=== PATIENT | female | born 1950 | race African-American/Black ===

== ENCOUNTER 2019-12-11 22:23 | Inpatient (IN) | payer MEDICARE, BC ==
[~2019-12-11] VITALS: Ht 165.1 cm; Wt 82.6 kg
--- NOTE | 2019-12-11 22:30 | NUR ---
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 PT STATES SHE WAS CLEANING AND SLIPPED ON WET FLOOR. DENIED LOC, DIZZINESS. SKIN INTACT. PT REC'D 100MCG [facility] EN ROUTE TO HOSPITAL. PT C/O PAIN WITH MOVEMENT. PT AAOX4. RESPIRATIONS EVEN AND UNLABORED. VITAL SIGNS STABLE. NO ACUTE DISTRESS NOTED AT THIS TIME. PLACED ON MONITOR. CALL LIGHT WITHIN REACH. WILL CONTINUE TO MONITOR
[2019-12-11] MEDS ORDERED: ONDANSETRON 4 MG TAB.RAPDIS ONE (22:42)
[2019-12-11] MEDS ORDERED: HYDROMORPHONE 1 MG/1 ML DISP.SYRIN ONE (22:42)
[2019-12-11] MEDS ORDERED: ONDANSETRON HCL/PF 4 MG/2 ML VIAL ONE (22:47)
--- NOTE | 2019-12-11 22:48 | NUR ---
PER VERBAL MD ORDER, WILL ADMINISTER ZOFRAN IV INSTEAD OF ODT
--- NOTE | 2019-12-11 22:51 | NUR ---
PER VERBAL MD ORDER, WILL HOLD DILAUDID AND ZOFRAN AT THIS TIME.
--- NOTE | 2019-12-11 22:57 | NUR ---
TONA ([facility]) [phone]
[2019-12-11] MEDS ORDERED: ONDANSETRON 4 MG TAB.RAPDIS SL ONE (23:00)
[2019-12-11] MEDS ORDERED: ONDANSETRON HCL/PF - ER 4 MG/2 ML VIAL IV ONE (23:00)
[2019-12-11] MEDS ORDERED: HYDROMORPHONE 1 MG/1 ML DISP.SYRIN IM ONE (23:00)
--- NOTE | 2019-12-12 00:15 | NUR ---
SWITCHBOARD RECEPTIONIST AT BEDSIDE FOR BLOOD DRAW
[2019-12-12 00:21] LABS: BASOPHILS % (AUTO) 0.2 % (0.0-2.0); EOSINOPHILS % (AUTO) 0.1 % (0.0-6.0); HEMATOCRIT 38 % (33-45); HEMOGLOBIN 12.5 g/dL (11.5-14.8); LYMPHOCYTES # (AUTO) 0.9 /CMM (0.8-4.8); MEAN CORPUSCULAR HGB CONC 33 g/dl (31.0-36.0); MEAN CORPUSCULAR VOLUME 83 fL (82-100); MONOCYTES # (AUTO) 0.8 /CMM (0.1-1.30); MONOCYTES % (AUTO) 7.2 % (2.0-12.0); NEUTROPHILS # (AUTO) 9.7 /CMM (1.8-8.9); NEUTROPHILS % (AUTO) 84.5 % (43.0-81.0); PLATELET COUNT (AUTO) 221 /CMM (150-450); RED BLOOD CELL COUNT(AUTO) 4.59 MIL/uL (4.0-5.2); WHITE BLOOD COUNT (AUTO) 11.5 K/uL (4.3-11.0)
[2019-12-12 00:30] LABS: CALCIUM, SERUM 8.9 mg/dL (8.5-10.1); CREATININE 0.9 mg/dL (0.6-1.3); POTASSIUM 4.1 mmol/L (3.5-5.1)
--- NOTE | 2019-12-12 00:33 | NUR ---
REPORT GIVEN TO SUZIE SMITH FOR JORDY
[2019-12-12 00:37] LABS: ALBUMIN 3.5 g/dL (3.4-5.0); BILIRUBIN,TOTAL 0.3 mg/dL (0.2-1.0); TOTAL PROTEIN, SERUM 6.6 g/dL (6.4-8.2)
[2019-12-12] MEDS ORDERED: Z GUARD REMEDY 2 OZ OINT TP PRN (01:00)
[2019-12-12] MEDS ORDERED: ACETAMINOPHEN 325 MG TABLET PO PRN (01:00)
[2019-12-12] MEDS ORDERED: ONDANSETRON HCL/PF 4 MG/2 ML VIAL IVP PRN (01:00)
[2019-12-12] MEDS ORDERED: MORPHINE SULFATE INJ 2 MG/ML DISP.SYRIN IV PRN (01:00)
[2019-12-12] MEDS: HYDROMORPHONE 1 MG/1 ML DISP.SYRIN IV PRN ×5 (01:39→22:07)
[2019-12-12 02:00] VITALS: BP 146/65
--- NOTE | 2019-12-12 02:09 | NUR ---
[facility]
[2019-12-12 03:00] VITALS: BP 146/65
--- NOTE | 2019-12-12 03:08 | NUR ---
RN NOTES: NOTIFIED MD THAT PT UNABLE TO URINATE USING BED ALLEN, PT CLAIMED LAST VOIDED AT DINNER TIME YESTERDAY AROUND 0500PM. UNABLE TO TOLERATE SLIGHT MOVEMENT DUE TO LEFT HIP FRACTURE. PER MD, TELEPHONE ORDER, OKAY TO INSERT SHIN CATHETER.
[2019-12-12] MEDS: IV NS 0.9% 1,000 ML IV PRN ×2 (03:27→17:18)
--- NOTE | 2019-12-12 04:00 | NUR ---
ADMISSION NOTES: 0215: RECEIVED REPORT FROM YARITZA BROWN RN. PT BROUGHT TO THE UNIT VIA [facility], S/P [facility] F[facility]. ORIENTED PT TO UNIT POLICY AND HOURLY ROUNDING, USE OF CALL LIGHT SYSTEM. PT STATED SHE'S HAVING LEFT HIP AND LEFT LEG CRAMPS. LAST DILAUDID ADMINISTERED 0139AM. IV ACCESS PATENT AND FLUSHING WELL, ON HL. PT REFUSED TO BE MOVE AND TURN , EDUCATION PROVIDED TO PT. ALSO REFUSED FOR SKIN CHECK. UNABLE TO REMOVE LINENS UNDERNEATH PT REFUSING FOR TURNING. PT SOMEWHAT FRUSTRATED, ALSO MADE AWARE OF VISITATION RESTRICTION DUE TO COVID. PT USES OWN N95 FROM HOME. 0230: VS TAKEN AND RECORDED. INVENTORY OF BELONGINGS COMPLETED BY TRISTON AYALA. 0240: PLACED ROLLED BLANKET TO OFFLOAD BOTH HEELS. PT REFUSED SCD DUE TO LEG CRAMPS AND PAIN. EDUCATION PROVIDED TO PT. ADMISSION ORDERS ACKNOWLEDGED. DISCUSSED PLAN OF CARE TO PT. SAFETY PRECAUTIONS FOR FALL INITIATED, CALL LIGHT IN REACH, WILL CONTINUE MONITORING PT.
--- NOTE | 2019-12-12 04:06 | NUR ---
RN NOTES: SUCCESSFULLY INSERTED SHIN CATHETER, YELLOW COLORED URINE OBTAINED ABOUT 400ML, BAG DRAINING VIA GRAVITY.
--- NOTE | 2019-12-12 04:10 | NUR ---
RN NOTES: PT REFUSED TO BE TURN AND REPOSITION STATED SHE'S HAVING TOO MUCH CRAMPS ON HER LEG AND HIPS, EDUCATION PROVIDED TO PT REGARDING POSSIBLE DEVELOPMENT OF PRESSURE INJURIES ON SACRAL AND BONY PROMINENCE.
--- NOTE | 2019-12-12 04:16 | NUR ---
RN NOTES: PT STATED SHE'S TAKING SYNTHROID BUT UNSURE OF THE DOSAGE. STATED SHE WILL ASK HER IN AM.
--- NOTE | 2019-12-12 04:38 | NUR ---
MS RN PRN MORPHINE: PT C/O OF 04/02 PAIN ON LEFT LEG HIP. NO S/S OF SOB. NO S/S OF RESPIRATORY DISTRESS. BREATHING EVEN AND UNLABORED. MEDICATION PRN MORPHINE IV PUSH ADMINISTERED AT THIS TIME. WILL CONTINUE TO MONITOR.
--- NOTE | 2019-12-12 06:51 | NUR ---
end of shift report: pt remains on ra, prn morphine administered at 0430am for c/o left hip and leg pain. pt remains on n95 per pt preference. iv access remains patent and flushing well, infusing with ns at 75ml/hr, no s/s of iv infiltration noted. awaiting ortho consult. pt remains to refused turning and repositioning, refused skin check and photos. md and manufacturing intern aware. bella catheter remains in placed, bag draining via gravity. vs remains stable, needs attended. safety precautions for fall remains engaged, call light in reach, will endorse to day rn for continuity of care.
--- NOTE | 2019-12-12 07:30 | NUR ---
MS/RN Opening Note Received Patient OA X 3, confusing able to responds all stimuli. No c/o pain or any discomfort, skin is warm to touch, kept clean/dry, intact IV site and running NS at 75 ml. Respiratory even and unlabored with room air. Encouraged patient not to excess touch IV site or pulling the site. Call light within reach, will continue to monitor.
--- NOTE | 2019-12-12 07:42 | NUR ---
MS/RN OPENING NOTES RECEIVED PATIENT SLEEPING ON BED. PATIENT IS EASILY AROUSABLE. NO APPARENT RESPIRATORY DISTRESS NOTED. NO S/S OF PAIN NOTED. IV ACCESS IN PLACED AT LEFT AC #20 WITH IV FLUID OF NS 1L AT 75ML/HR INFUSING WELL. BED IN LOWEST POSITION, SIDE RAILS UP X2. CALL LIGHT WITH IN REACH. WILL CONTINUE TO MONITOR.
[2019-12-12 08:00] VITALS: BP 171/82
[2019-12-12 09:10] LABS: THYROID STIMULATING HORMONE 0.319 uIU/mL (0.358-3.74)
[2019-12-12] MEDS ORDERED: UBID100C13 PO (09:45)
[2019-12-12] MEDS ORDERED: LEVO125T8 PO (09:45)
[2019-12-12] MEDS ORDERED: CINN500C2 PO (09:45)
[2019-12-12] MEDS ORDERED: CHOL100040 PO (09:45)
[2019-12-12] MEDS ORDERED: OMEG1CAP55 PO (09:45)
[2019-12-12] MEDS ORDERED: FA/V1CAP2 PO (09:45)
[2019-12-12] MEDS ORDERED: GLUC-141 PO (09:45)
[2019-12-12] MEDS ORDERED: CRAN500C5 PO (09:45)
[2019-12-12] MEDS: CHOLECALCIFEROL 1,000 UNIT TABLET (VIT D3) PO SCH (13:31)
[2019-12-12 16:00] VITALS: BP 152/99
[2019-12-12 16:18] LABS: APPEARANCE,URINE CLEAR (CLEAR); BILIRUBIN,URINE NEGATIVE (NEGATIVE); BLOOD, URINE SMALL Ery/uL (NEGATIVE); COLOR,URINE YELLOW (YELLOW); KETONES,URINE NEGATIVE (NEGATIVE); LEUKOCYTE ESTERASE ,URINE NEGATIVE (NEGATIVE); NITRITE, URINE NEGATIVE (NEGATIVE); PROTEIN,URINE NEGATIVE (NEGATIVE); UGLUCOSE NEGATIVE (NEGATIVE); UROBILINOGEN,URINE 0.2 EU/dL (0.2)
[2019-12-12 16:46] LABS: BACTERIA,URINE Few /HPF (None Seen); SQUAMOUS EPITHELIAL CELL,UR Few /HPF (None Seen); WBC,URINE 0-2 /HPF (0-3)
[2019-12-12] MEDS ORDERED: Medication Not On Formulary EA (Omega-3 Acid Ethyl Esters (Lovaza) 1 GM) PO SCH (17:00)
--- NOTE | 2019-12-12 19:23 | NUR ---
MS/RN CLOSING NOTES PATIENT LYING ON BED. PATIENT IS ALERT AND ORIENTED X4. NO APPARENT RESPIRATORY DISTRESS NOTED. NO S/S OF PAIN NOTED. IV ACCESS IN PLACED AT LEFT AC #20 WITH IV FLUID OF NS 1L AT 75ML/HR INFUSING WELL. SEEN AND EXAMINED BY MD WITH ORDERS MADE AND CARRIED OUT. CHECKED PATIENT EVERY 2 HOURS. KEPT PATIENT CLEAN AND DRY THE WHOLE TIME. BED IN LOWEST POSITION, SIDE RAILS UP X2. CALL LIGHT WITH IN REACH. WILL ENDORSED TO RETAIL PRODUCT DEMO SPECIALIST FOR JORDY.
--- NOTE | 2019-12-12 20:27 | NUR ---
received alert and orientated. aware she is scheduled for AM surgery. surgical check list started she was good about answering questions. speech clear able to roll to the right side minimally to pull out sheet from the er under her and her black top left foot PPP
[2019-12-12 20:45] VITALS: BP 150/71
[2019-12-13 01:19] VITALS: BP 151/76
[2019-12-13] MEDS: HYDROMORPHONE 1 MG/1 ML DISP.SYRIN IV PRN (03:12)
--- NOTE | 2019-12-13 05:24 | NUR ---
NOTED LEFT LEG TURNS OUTWARD, PATIENT NOT ALLOWING ME TO STAIGTEN THE LEG AND SUPPORT WITH PILLOWS AND BLANKES FOR GOOD ALIGNMENT. PPP FOR WARM NPO THRU THE NIGHT AND AWARE SHE IS GOING TO HAVE HIP SURGERY IN THE am 12/12. CONSENT IS SIGNED AND THE PREOP LIST STARTED. ALLERGY TO SHELLFISH. SHIN CLEAR YELLOW IN COLOR. ALL MAKEUP REMOVED. MEDICATED IV X2 AND EFFECTIVE
[2019-12-13] MEDS: IV NS 0.9% 1,000 ML IV PRN (05:50)
[2019-12-13] MEDS: LEVOTHYROXINE SODIUM 125 MCG TABLET PO SCH (07:38)
--- NOTE | 2019-12-13 07:48 | NUR ---
MS/RN OPENING NOTES RECEIVED PATIENT AWAKE ON BED. NO APPARENT RESPIRATORY DISTRESS NOTED. NO S/S OF PAIN NOTED. IV ACCESS IN PLACED AT LEFT AC #20 WITH IV FLUID OF NS 1L AT 75ML/HR INFUSING WELL. BED IN LOWEST POSITION, SIDE RAILS UP X2. CALL LIGHT WITH IN REACH. WILL CONTINUE TO MONITOR.
[2019-12-13 08:00] VITALS: BP 150/90
[2019-12-13] MEDS: CHOLECALCIFEROL 1,000 UNIT TABLET (VIT D3) PO SCH (08:22)
[2019-12-13] MEDS: VIT B CMPLX 3/FA/VIT C/BIOTIN 1 TAB TABLET PO SCH (08:22)
[2019-12-13 08:35] LABS: BASOPHILS % (AUTO) 0.4 % (0.0-2.0); EOSINOPHILS % (AUTO) 2.1 % (0.0-6.0); HEMATOCRIT 36 % (33-45); HEMOGLOBIN 11.8 g/dL (11.5-14.8); LYMPHOCYTES # (AUTO) 1.4 /CMM (0.8-4.8); LYMPHOCYTES % (AUTO) 16.4 % (20.0-44.0); MEAN CORPUSCULAR HGB CONC 33 g/dl (31.0-36.0); MEAN CORPUSCULAR VOLUME 83 fL (82-100); MONOCYTES # (AUTO) 0.8 /CMM (0.1-1.30); MONOCYTES % (AUTO) 10.2 % (2.0-12.0); NEUTROPHILS # (AUTO) 5.9 /CMM (1.8-8.9); NEUTROPHILS % (AUTO) 70.9 % (43.0-81.0); PLATELET COUNT (AUTO) 199 /CMM (150-450); WHITE BLOOD COUNT (AUTO) 8.3 K/uL (4.3-11.0)
[2019-12-13] MEDS ORDERED: CRANBERRY EXTRACT 500 MG PO SCH (09:00)
[2019-12-13] MEDS ORDERED: ENOXAPARIN SODIUM 40 MG/0.4 ML DISP.SYRIN SQ SCH (09:00)
[2019-12-13] MEDS ORDERED: Medication Not On Formulary EA (Gluc/Chon-Msm#2/C/D3/Mang/Born (Glucosamin-Chondroitin-M PO SCH (09:00)
[2019-12-13] MEDS ORDERED: CINNAMON BARK 500 MG PO SCH (09:00)
--- NOTE | 2019-12-13 09:01 | NUR ---
MS/RN NOTES PATIENT ATTENDING ANESTHESIOLOGIST BY THE OR NURSE FOR SURGERY.
[2019-12-13] MEDS ORDERED: BACITRACIN 50000 UNITS/VIAL ONE (09:04)
[2019-12-13] MEDS ORDERED: BUPIVACAINE 0.5 % PF 150 MG/30 ML VIAL ONE (09:04)
[2019-12-13 09:49] LABS: CALCIUM, SERUM 8.6 mg/dL (8.5-10.1); CREATININE 0.6 mg/dL (0.6-1.3); PHOSPHORUS 3.1 mg/dL (2.5-4.9)
[2019-12-13] MEDS ORDERED: FENTANYL PF 100MCG/2ML AMPUL ONE (11:34)
[2019-12-13 12:16] LABS: BASOPHILS % (AUTO) 0.2 % (0.0-2.0); EOSINOPHILS % (AUTO) 0.6 % (0.0-6.0); HEMATOCRIT 35 % (33-45); HEMOGLOBIN 11.2 g/dL (11.5-14.8); LYMPHOCYTES # (AUTO) 0.7 /CMM (0.8-4.8); LYMPHOCYTES % (AUTO) 6.2 % (20.0-44.0); MEAN CORPUSCULAR HGB CONC 32 g/dl (31.0-36.0); MEAN CORPUSCULAR VOLUME 84 fL (82-100); MONOCYTES # (AUTO) 0.8 /CMM (0.1-1.30); MONOCYTES % (AUTO) 7.4 % (2.0-12.0); NEUTROPHILS # (AUTO) 9.8 /CMM (1.8-8.9); NEUTROPHILS % (AUTO) 85.6 % (43.0-81.0); PLATELET COUNT (AUTO) 189 /CMM (150-450); RED BLOOD CELL COUNT(AUTO) 4.14 MIL/uL (4.0-5.2); WHITE BLOOD COUNT (AUTO) 11.5 K/uL (4.3-11.0)
--- NOTE | 2019-12-13 12:22 | NUR ---
MS/RN NOTES PATIENT CAME BACK FROM SURGERY AND RECEIVED REPORT FROM TONIO OR NURSE, PATIENT IV ACCESS AT LEFT AC # 20 AND LEFT FOREARM # 20 INTACT AND PATENT, INCISION AT LEFT LOWER THIGH AND LEFT HIP WITH DRY DRESSING IN PLACED WITH ICE PACK ON TOP. MEDICATION WAS FAXED TO PHARMACY. V/S BP 120/60 T 98 P 82 SO2 97. WILL CONTINUE TO MONITOR.
[2019-12-13] MEDS: IV LR 1000 ML 1,000 ML IV PRN (14:20)
--- NOTE | 2019-12-13 15:18 | NUR ---
MS/RN NOTES DR. REYNOLDS ORDER TYLENOL 650 MG 1 TAB ONE TIME ONLY, IBUPROFEN 600MG 1TAB ONE TIME ONLY AND DILAUDID 0.5 MG IV ONE TIME ONLY. NOTED AND CARRIED OUT.
[2019-12-13] MEDS ORDERED: HYDROMORPHONE 1 MG/1 ML DISP.SYRIN IV ONE (15:30)
[2019-12-13 16:00] VITALS: BP 148/67
[2019-12-13] MEDS ORDERED: ACETAMINOPHEN 650 MG/20.3 ML UDC PO ONE (17:00)
[2019-12-13] MEDS ORDERED: IBUPROFEN 600 MG TABLET PO ONE (17:00)
[2019-12-13] MEDS: CEFAZOLIN 2 GM in IV D5W 100 ML IV SCH (18:10)
--- NOTE | 2019-12-13 18:53 | NUR ---
MS/RN CLOSING NOTES PATIENT IS ALERT AND ORIENTED X4. DENIES PAIN AT THIS TIME. NO APPARENT RESPIRATORY DISTRESS NOTED. IV FLUID LR 1L AT 75 ML/HR INFUSING WELL. IV ACCESS AT LEFT FOREARM # 20G INTACT AND PATENT. PATIENT INCISION SITE AT LEFT LOWER THIGH AND LEFT HIP DRESSING IS CLEAN AND DRY. PATIENT DRESSING CHANGE MD ONLY. BED IN LOWEST POSITION AND LOCKED. SIDE RAILS UP X2. CALL LIGHT WITH IN REACH. WILL ENDORSED TO ACCOUNT SOLUTIONS ANALYST FOR JORDY.
--- NOTE | 2019-12-13 19:00 | NUR ---
received alert and orientated speech clear left hip dressing CDI left foot PPP foot warm. She stated she doen't like orphine d/t she "sees thing that aren't there" and she had it before and she cooper not like how it makes her feel. Offered [place]. She said she ois alright for now.
[2019-12-13 20:12] VITALS: BP 120/58
[2019-12-13 20:19] VITALS: BP 120/58
[2019-12-13] MEDS: HYDROCODONE/APAP 5/325MG 1 EACH TABLET PO PRN (23:45)
[2019-12-14] MEDS: CEFAZOLIN 2 GM in IV D5W 100 ML IV SCH (01:16)
[2019-12-14] MEDS: IV LR 1000 ML 1,000 ML IV PRN (04:23)
--- NOTE | 2019-12-14 05:00 | NUR ---
ENDING NOTES: SLEPT THRU MOST OF THE NIGHT. AT THE BEGINNING I REVEIWED HER MEDICATIONS WITH HER. SHE REFUSES TO TAKE MORPHINE FOR PAIN D/T IS MAKE HER SEE THING AND SHE DOESN'T FEEL RIGHT WITH THE MEDICATION. SHE STATED SHE WANT TYLENOL OR "MAYBE I WILL TRY THE NORCO". THE NIGHT PROGRESSED SHE ASKED FOR THE NORCO, 2 TABS GIVEN AND EFFECTIVE FOR THE PAIN. SHIN CATHETER TO BE REMOVED AT 6AM THIS DAY. SCD'S WORN THRU THE NIGHT LEFT HIP DRESSING REMAINS CDI PPP LEFT FOOT MOVEABLE AND WARM
[2019-12-14 07:29] LABS: BASOPHILS % (AUTO) 0.4 % (0.0-2.0); CALCIUM, SERUM 8.2 mg/dL (8.5-10.1); CREATININE 0.7 mg/dL (0.6-1.3); EOSINOPHILS % (AUTO) 3.3 % (0.0-6.0); HEMATOCRIT 31 % (33-45); HEMOGLOBIN 10.2 g/dL (11.5-14.8); LYMPHOCYTES # (AUTO) 1.1 /CMM (0.8-4.8); LYMPHOCYTES % (AUTO) 15.4 % (20.0-44.0); MEAN CORPUSCULAR HGB CONC 33 g/dl (31.0-36.0); MEAN CORPUSCULAR VOLUME 83 fL (82-100); MONOCYTES # (AUTO) 0.7 /CMM (0.1-1.30); MONOCYTES % (AUTO) 10.1 % (2.0-12.0); NEUTROPHILS # (AUTO) 5.2 /CMM (1.8-8.9); NEUTROPHILS % (AUTO) 70.8 % (43.0-81.0); PLATELET COUNT (AUTO) 191 /CMM (150-450); POTASSIUM 4.7 mmol/L (3.5-5.1); WHITE BLOOD COUNT (AUTO) 7.3 K/uL (4.3-11.0)
--- NOTE | 2019-12-14 07:30 | NUR ---
ms rn received on bed, awake,alert,oriented x4,s/p surgery of left hip, site clean and ry, no s/s of bleeding ,covered w/ dressing, denies pain at this time, will monitor patient's condition.
[2019-12-14 08:00] VITALS: BP 138/89
[2019-12-14] MEDS: LEVOTHYROXINE SODIUM 125 MCG TABLET PO SCH (08:14)
[2019-12-14] MEDS: HYDROCODONE/APAP 5/325MG 1 EACH TABLET PO PRN ×3 (08:15→20:13)
[2019-12-14] MEDS: CHOLECALCIFEROL 1,000 UNIT TABLET (VIT D3) PO SCH (09:20)
[2019-12-14] MEDS: VIT B CMPLX 3/FA/VIT C/BIOTIN 1 TAB TABLET PO SCH (09:21)
[2019-12-14] MEDS: VALSARTAN 80 MG TABLET PO SCH (09:22)
--- NOTE | 2019-12-14 09:40 | NUR ---
ms mattson breakfast served,due meds given,tolerated well.
[2019-12-14] MEDS: ENOXAPARIN SODIUM 40 MG/0.4 ML DISP.SYRIN SQ SCH (10:07)
--- NOTE | 2019-12-14 11:00 | NUR ---
ms rn was seen by pt ,stand and excercises done,tolerated well.
[2019-12-14 16:00] VITALS: BP 149/68
--- NOTE | 2019-12-14 18:00 | NUR ---
ms rn on bed,no distress noted,all needs attended.
[2019-12-14 20:00] VITALS: BP 118/58
--- NOTE | 2019-12-14 20:22 | NUR ---
RECEIVED PATIENT IN BED ALERT AND ORIENTATED X3 SPEECH CLEAR PPP LEFT FOOT LEFTHIP DRESSING CDI
[2019-12-14 20:26] VITALS: BP 118/58
[2019-12-15] MEDS: HYDROCODONE/APAP 5/325MG 1 EACH TABLET PO PRN ×2 (01:56→08:44)
--- NOTE | 2019-12-15 06:10 | NUR ---
ENDING NOTES: SLEPT NETTIE THE NIGHT MEDICATED X2 FOR PAIN AND EFFECTIVE WITH POI ANALGESIC
[2019-12-15 07:21] LABS: BASOPHILS % (AUTO) 0.7 % (0.0-2.0); EOSINOPHILS % (AUTO) 4.6 % (0.0-6.0); HEMATOCRIT 28 % (33-45); HEMOGLOBIN 9.4 g/dL (11.5-14.8); LYMPHOCYTES # (AUTO) 1.4 /CMM (0.8-4.8); MEAN CORPUSCULAR HGB CONC 34 g/dl (31.0-36.0); MEAN CORPUSCULAR VOLUME 84 fL (82-100); MONOCYTES # (AUTO) 0.7 /CMM (0.1-1.30); MONOCYTES % (AUTO) 10.2 % (2.0-12.0); NEUTROPHILS # (AUTO) 4.5 /CMM (1.8-8.9); NEUTROPHILS % (AUTO) 64.5 % (43.0-81.0); PLATELET COUNT (AUTO) 222 /CMM (150-450); RED BLOOD CELL COUNT(AUTO) 3.37 MIL/uL (4.0-5.2)
[2019-12-15 07:27] LABS: CALCIUM, SERUM 8.4 mg/dL (8.5-10.1); CREATININE 0.8 mg/dL (0.6-1.3); POTASSIUM 3.8 mmol/L (3.5-5.1)
[2019-12-15] MEDS: LEVOTHYROXINE SODIUM 125 MCG TABLET PO SCH (07:47)
--- NOTE | 2019-12-15 07:51 | NUR ---
MS/RN Opening note. Patient received from kennel supervisor. A/O X4, vital signs within normal range, denies pain at this time, stating that its only painful when moving. Dressing to left hip remains intact. Heplock flushing well with normal saline, no signs of infiltration seen. Call light within reach, aware how to use and call for help if needed. Bed in low setting, side rails X2in upright position. Will continue to monitor and ensure safety.
[2019-12-15 08:00] VITALS: BP 147/76
[2019-12-15 08:18] VITALS: BP 147/76
[2019-12-15] MEDS: VIT B CMPLX 3/FA/VIT C/BIOTIN 1 TAB TABLET PO SCH (08:18)
[2019-12-15] MEDS: VALSARTAN 80 MG TABLET PO SCH (08:18)
[2019-12-15] MEDS: CHOLECALCIFEROL 1,000 UNIT TABLET (VIT D3) PO SCH (08:18)
[2019-12-15] MEDS: ENOXAPARIN SODIUM 40 MG/0.4 ML DISP.SYRIN SQ SCH (08:22)
[2019-12-15] MEDS ORDERED: ENOX40DI SQ (08:23)
--- NOTE | 2019-12-15 08:40 | NUR ---
MS/RN Pre medicate Patient pre medicated per PT request. PT to ambulate patient at 0930.
--- NOTE | 2019-12-15 08:58 | NUR ---
MS/RN S/B Dr Herndon Seen by MD - patient to be discharged to ARU later today.
[2019-12-15] MEDS ORDERED: DOCUSATE SODIUM 100 MG CAPSULE PO SCH (10:30)
--- NOTE | 2019-12-15 14:41 | NUR ---
MS/seed sales manager Patient discharged to [place] [facility] in stable condition with paramedics. All personal property with patient and accounted for on belongings list. Heplock and name bands removed. Copies of exit care and medical record provided to paramedics. Dressing dry and intact upon discharge. Report called to Tahir.
== END 2019-12-15 14:45 | DRG 482 ==
LOC: ER 22:24 → MED 12-12 00:12
PROVIDERS: ADMIT Registered Nurse; ATTEND Family Medicine
PROC: 0QS706Z Reposition Left Upper Femur with Intramedullary Internal Fixation Device, Open Approach (ICD-10-PCS; principal; 2019-12-13)
DX: S72.142A Displaced intertrochanteric fracture of left femur, initial encounter for closed fracture (principal); W01.0XXA Fall on same level from slipping, tripping and stumbling without subsequent striking against object, initial encounter; I10 Essential (primary) hypertension; E03.9 Hypothyroidism, unspecified; E66.9 Obesity, unspecified; D72.829 Elevated white blood cell count, unspecified; Z68.30 Body mass index [BMI] 30.0-30.9, adult; Y93.E5 Activity, floor mopping and cleaning; Y92.009 Unspecified place in unspecified non-institutional (private) residence as the place of occurrence of the external cause; Z79.890 Hormone replacement therapy
CPT/HCPCS: 36415; 71045-TC; 72170-TC; 73020; 73502; 80048-TC; 80061-TC; 80076-TC; 81000-TC; 83735-TC; 84100-TC; 84439-TC; 84443-TC; 85025-TC; 85730-TC; 86850-TC; 87081-TC; 93307-TC; 97116-TC; 97530-TC; A6209; C1713; G0378; J0330; J0690; J1100; J1170; J1650; J2270; J2405; J3010; J3490; J7030; J7060; J7120; Q0162